=== PATIENT | female | born 1995 | race Caucasian/White ===

== ENCOUNTER 2017-02-21 02:20 | Inpatient (IN) | payer BC ==
[~2017-02-21] VITALS: Ht 170.2 cm; Wt 54.5 kg
--- NOTE | 2017-02-21 04:12 | NUR ---
RECIEVED PT FROM ER VIA BED, ASSESSMENT, HISTORY AND MED REC COMPLETED , NO OTHER DISTRESS NOTED EXCEPT L SHOULDER PAIN, WRONG FORM OF DILAUDID PULLED BY THIS NURSE,(PULLED FLUORESCENT LIGHTING MODEL MAKER SYRINGE INSTEAD OF IVP VIAL) TO PT, VIAL WASTED, PRN DILAUDID GIVEN PER MD ORDERS
[2017-02-21] MEDS ORDERED: SPRINTEC1 TAB PO (05:04)
[2017-02-21] MEDS ORDERED: ZANAFLEX4 MG PO (05:04)
[2017-02-21] MEDS ORDERED: VYVANSE30 MG PO (05:07)
[2017-02-21 05:10] VITALS: BP 132/75; Ht 170.2 cm; Wt 54.5 kg
--- NOTE | 2017-02-21 05:58 | NUR ---
PT RESTING COMFORTABLY WITH EYES CLOSED, EASILY AROUSED, NO DISTRESS NOTED AT THIS TIME, MOTHER AT BEDSIDE, FALL PRECAUTIONS IN PLACE, CL IN REACH
[2017-02-21 09:35] VITALS: BP 110/53
--- NOTE | 2017-02-21 14:55 | NUR ---
PATIENT TRANSFERRED VIA WHEELCHAIR TO RADIOLOGY FOR A CT OF HER LEFT SHOULDER.
--- NOTE | 2017-02-21 15:05 | NUR ---
PATIENT RETURNED TO HER ROOM VIA WHEELCHAIR FROM RADIOLOGY.
--- NOTE | 2017-02-21 18:00 | NUR ---
PATIENT RESTING QUIETLY WITH HER EYES CLOSED. NO S/S OF DISTRESS NOTED. HEALTH CARE ASSISTANT DILAUDID AT THE BEDSIDE. PATIENT'S MOTHER IN THE ROOM. CALL LIGHT IN PATIENT'S REACH. WILL MONITOR PATIENT.
[2017-02-21 18:22] VITALS: BP 142/63
--- NOTE | 2017-02-21 19:25 | NUR ---
RECIEVED SHIFT REPORT. PT IS LYING IN BED. ALERT AND ORIENTED AND ABLE TO VERBALIZE NEEDS. IV IS PATENT AND FLUIDS ARE RUNNING PER ORDER. PT IS AMBULATORY WITH ASSISTANCE. SLING NOTED TO LEFT ARM. PT STATES PAIN IS 8/10 WITH COMPANY DANCER PUMP. NO NEEDS ARE VERBALIZED AT THIS TIME. MOM AT THE BEDSIDE. WILL CONTINUE TO MONITOR. SIDE RAILS ARE UP X 2. BED IS IN LOWEST POSITION. CALL LIGHT IS WITHIN REACH.
[2017-02-21 20:00] VITALS: BP 128/56
--- NOTE | 2017-02-21 20:00 | NUR ---
SHIFT ASSESSMENT COMPLETED. PT STATUS REMAINS UNCHANGED FROM PREVIOUS. ICE APPLIED TO LEFT SHOULDER. NO NEEDS ARE VOICED. WILL MONITOR. MOM AT BEDSIDE. SIDE RAILS X 2. BED LOW. CALL LIGHT IN REACH.
[2017-02-22 04:00] VITALS: BP 115/42
--- NOTE | 2017-02-22 07:45 | NUR ---
ASSESSMENT COMPLETE. IV TO R AC PATENT. SURFACE PLATE INSPECTOR DILAUID 0.2-10-4 IN USE FOR PAIN CONTROL. NPO FOR POSSIBLE SURGERY TODAY. SLING IN USE TO L ARM. COMPLAINING OF PAIN TO L SHOULDER WITH MOVEMENT.
[2017-02-22 08:25] VITALS: BP 117/64
[2017-02-22 12:53] VITALS: BP 135/75
--- NOTE | 2017-02-22 13:02 | NUR ---
OFF FLOOR TO OR VIA BED. GRANDMOTHER TO WAITING ROOM.
--- NOTE | 2017-02-22 14:22 | NUR ---
1358 CM went to patient's room for admission assessment for needs at discharge. Grandmother had reportedly been at the bedside. Patient is in OR. Grandmother was not in the room. Case management will revisit.
[2017-02-22 16:01] VITALS: BP 109/71
--- NOTE | 2017-02-22 16:01 | NUR ---
RETURNED TO ROOM FROM RECOVERY ROOM. DRESSING C/D/I TO L SHOULDER. IMMOBILIZER/SLING IN USE TO L ARM.
[2017-02-22 16:12] VITALS: BP 109/71
--- NOTE | 2017-02-22 18:10 | NUR ---
RESTING QUIETLY IN BED WITH EYES CLOSED. RESP EVEN,NONLABORED.
--- NOTE | 2017-02-22 19:25 | NUR ---
RECIEVED SHIFT REPORT. PT IS LYING IN BED. ALERT AND ORIENTED AND ABLE TO VERBALIZE NEEDS. IV IS PATENT AND FLUIDS ARE RUNNING PER ORDER. DRESSING TO LEFT SHOULDER C/D/I. SLING ON. PT IS AMBULATORY WITH ASSISTANCE. PT STATES PAIN IS 4/10 WITH SURVEY RESEARCH TEACHER PUMP. SCD'S ON. NO NEEDS ARE VERBALIZED AT THIS TIME. MOM IS AT THE BEDSIDE. WILL CONTINUE TO MONITOR. SIDE RAILS ARE UP X 2. BED IS IN LOWEST POSITION. CALL LIGHT IS WITHIN REACH.
[2017-02-22 20:00] VITALS: BP 107/48
--- NOTE | 2017-02-22 20:21 | NUR ---
SHIFT ASSESSMENT COMPLETED. NIGHT MEDS GIVEN WITH NO PROBLEMS. NO NEEDS ARE VOICED. MOM AT BEDSIDE. WILL MONITOR. SIDE RAILS X 2. BED LOW. CALL LIGHT IN REACH.
[2017-02-23] VITALS: BP 105/44
[2017-02-23 03:49] LABS: HEMATOCRIT 30.6 % (36.0-48.0); HEMOGLOBIN 10.6 g/dL (12-16)
[2017-02-23 04:00] VITALS: BP 108/51
--- NOTE | 2017-02-23 08:00 | NUR ---
PT AOX4 RESP EVEN AND NONLABORED PT DENIES NEEDS AT THIS TIME IV TO RIGHT AC PATENT AND INTACT. SRX2 BED AT LOWEST SETTING CALL LIGHT WITHIN REACH WILL CONTINUE TO MONITOR FAMILY AT BEDSIDE
[2017-02-23 08:58] VITALS: BP 124/58
--- NOTE | 2017-02-23 11:25 | NUR ---
Patient Name: NYASIA MATTHEW Admission Status: ER Accout number: [id number] Admission Date: 02-21-2017 : 1995 Admission Diagnosis:UNSP FRACTURE OF UPPER END OF LEFT HUMERUS, INIT FOR CL Attending: DEDE Current LOS: 2 Anticipated DC Date: Planned Disposition: Primary Insurance: [employer] [facility] Discharge Planning Comments: CM MET WITH PATIENT REGARDING D/C NEEDS AND PLANS. PATIENT STATED SHE HAS TWO ROOMMATES AND THERE ARE ABOUT 25-30 STEPS TO ENTER APARTMENT AND NO STAIRS INSIDE. PATIENT STATED HER MOM (ASTER) WILL DRIVE HER HOME AT DISCHARGE. PATIENT IS INDEPENDENT WITH HER CARE AND HAS NO DME AT HOME. PATIENTS PCP IS DR. DOUGLAS (THOR ETIENNE) AND USES [facility] [address]. PATIENT DOES NOT WANT HOME HEALTH AND HAS NO OTHER NEEDS FOR DISCHARGE AT THIS TIME. CM WILL CONTINUE TO FOLLOW PATIENT WITH D/C NEEDS AND PLANS. PCP DR[facility] [address] [phone] ASTER MATTHEW (MOM) [phone] Outside Repairer Special: Nolvia Barragan Is the patient Alert and Oriented? Yes 0 * How many steps to enter\exit or inside your home? 25-30 0 * PCP DR. STELLA ETIENNE 0 * [facility] [address] 0 * Preadmission Environment Home with Family 0 * ADLs Independent 0 * Equipment None 0 * List name and contact numbers for known caregivers / representatives who currently or will assist patient after discharge: ASTER MATTHEW (MOM) [phone] 0 * Community resources currently utilized None 0 * Additional services required to return to the preadmission environment? Yes 0 * Can the patient safely return to the preadmission environment? Yes 0 * Has this patient been hospitalized within the prior 30 days at any hospital? No 0 Grand Total: 0
[2017-02-23 11:44] VITALS: BP 105/60
[2017-02-23] MEDS ORDERED: XANAX0.25 MG PO (12:45)
[2017-02-23] MEDS ORDERED: DILAUDID4 MG PO (12:46)
[2017-02-23] MEDS ORDERED: IBUPROFEN800 MG PO (12:47)
--- NOTE | 2017-02-23 15:58 | NUR ---
IV DISCONTINUED WITH CATHETER INTACT AT THIS TIME. PT GIVEN DISCHARGE INSTRUCTIONS WITH 3 PRESCRIPTIONS. PT STATES UNDERSTANDING OF INSTRUCTIONS PT TAKEN BY WHEELCHAIR TO PRIVATE VEHICLE AT THIS TIME
--- NOTE | 2017-02-25 11:39 | OP ---
PATIENT NAME: NYASIA MATTHEW MEDICAL RECORD: [id number] :[birth year] LOCATION:[id number] ADMISSION DATE:02/21/17 SURGEON: SARAH VIEYRA MD DATE OF OPERATION: 02/22/2017 Orthopedic Surgery Operative Note PREOPERATIVE DIAGNOSIS: Fracture of the proximal humerus of the left shoulder. POSTOPERATIVE DIAGNOSIS: Fracture of the proximal humerus of the left shoulder. PROCEDURE: Open reduction internal fixation of proximal humerus fracture SURGEON: Sarah Vieyra MD ANESTHESIA: General. INTRAOPERATIVE COMPLICATIONS: None. SUMMARY OF PATHOLOGIC FINDINGS: The patient had a comminuted proximal humerus fracture that is extended into the humeral surgical neck area. IMPLANTS USED: Kylah AxSOS 3 fixation system, locking and nonlocking plate. OPERATIVE SUMMARY IN DETAIL: After obtaining the appropriate preoperative orthopedic surgery consents as well as anesthetic consultation, evaluation and clearance, the patient was brought to the operating room and placed on the operating table in supine position. After adequate general laryngeal mask airway was administered, the patient was placed in the beach chair position. All pressure points were well padded. She was held firmly to the operating table using the vacuum pack suction system. Left upper extremity was prepped and draped in a routine sterile fashion. The arm was held in the Trimano arm holding device. Deltopectoral incision was made, taken down to the level of the cephalic vein, which was protected throughout the entire case. Clavipectoral fascia was incised and the fracture was immediately seen. A brown retractor was utilized to hold the deltoid laterally while the PCL retractor was used to hold the conjoined tendon gently medially. Reduction maneuver was performed. This was followed by putting on the patient plate. Serial and sequential drill and fill technique was utilized with both locking and nonlocking screws. Because the patient had avulsion of the deltoid insertional site, a single [employer] 1.6 cable was wrapped around and placed to hold this in anatomic position. Having completed this, fluoroscopy verified that all screws were in the appropriate position without articular surface penetration. Final radiographs were submitted for radiologist for review. The wound was copiously irrigated. The incision was closed with #1 Vicryl followed by 2-0 Vicryl and skin sherie. Sterile dressings were applied. Sling was applied. The patient was awakened and taken to the recovery room in stable condition. All final needle and sponge counts were correct. TRANSINT:[id number] Voice Confirmation ID: [id number] DOCUMENT ID: [id number] OPERATIVE REPORT [id number] NYASIA MATTHEW MD, SARAH RUIZ at 1139 CC: [id number] DICTATION DATE: 02/22/17 1525 STEAM SHOVEL OPERATOR: 02/22/176 DIS IN 02/23/17 [place] [id number] [place] [phone]
== END 2017-02-23 16:01 | disposition home or self-care (01) | DRG 494 ==
LOC: D.ER 02:20 → D.MS 03:19 → OBSVTIME 03:19 → D.MS 03:19
PROVIDERS: ADMIT Orthopaedic Surgery
PROC: 0PSD04Z Reposition Left Humeral Head with Internal Fixation Device, Open Approach (ICD-10-PCS; principal; 2017-02-22 12:30)
DX: S42.212A Unspecified displaced fracture of surgical neck of left humerus, initial encounter for closed fracture (principal); W19.XXXA Unspecified fall, initial encounter; F41.9 Anxiety disorder, unspecified